=== PATIENT | male | born 1975 | race Caucasian/White ===

== ENCOUNTER 2018-03-08 07:21 | Emergency (ER) | payer OTHER ==
[~2018-03-08] VITALS: Ht 180.3 cm; Wt 92.1 kg
[2018-03-08 07:26] VITALS: Ht 180.3 cm; Wt 92.1 kg
[2018-03-08 09:12] VITALS: BP 138/98
== END 2018-03-08 09:12 | disposition home or self-care (01) ==
LOC: ED 07:21
DX: S52.571A Other intraarticular fracture of lower end of right radius, initial encounter for closed fracture (principal); F81.9 Developmental disorder of scholastic skills, unspecified; W22.8XXA Striking against or struck by other objects, initial encounter; Y93.89 Activity, other specified; Y92.89 Other specified places as the place of occurrence of the external cause; Y99.8 Other external cause status
CPT/HCPCS: A4570; Q0092